=== PATIENT | female | born 1970 | race Caucasian/White ===

== ENCOUNTER 2018-12-14 12:22 | Emergency (ER) | payer MEDICAID ==
[2018-12-14 12:37] VITALS: BP 128/84
[2018-12-14] MEDS ORDERED: CHERRY SYRUP 10 ML UDC PO ONE (13:00)
[2018-12-14] MEDS ORDERED: ALBUTEROL NEB 2.5 MG/3 ML INH STA (13:00)
[2018-12-14] MEDS ORDERED: DEXAMETHASONE 10 MG/ML VIAL PO STA (13:00)
--- NOTE | 2018-12-14 13:13 | ED Physician Documentation ---
History of Present Illness - Stated complaint Stated Complaint: COUGH/SOA - Chief complaint Chief Complaint: General - History obtained from History obtained from: Patient - History of Present Illness Timing: Today Pain level max: 0 Pain level now: 0 - Additonal information Additional information: 48-year-old female presents to the emergency department stating that she has had difficulty breathing for the past few weeks. Feels like it is her allergies. No fevers. Clear sputum. Take Zyrtec and Flonase. Has never used inhalers before, but states it feels tight when she tries to breathe. Nothing makes it better or worse. Review of Systems Constitutional: denies: Fever, Chills GI: denies: Vomiting Skin: denies: Rash Musculoskeletal: denies: Neck pain, Back pain Neurologic: denies: Focal weakness, Numbness, Headache PD PAST MEDICAL HISTORY - Past Medical History Past Medical History: No - Present Medications Home Medications: Ambulatory Orders Medication Instructions Recorded Confirmed Albuterol Sulf [Ventolin Hfa 1 - 2 puffs INH Q4HR PRN #1 inhaler 12/14/18 Inhaler] predniSONE [Deltasone] 10 mg PO [id number] #42 tab 12/14/18 - Allergies Allergies/Adverse Reactions: Allergies Allergy/AdvReac Type Severity Reaction Status Date / Time No Known Drug Allergies Allergy Verified 12/14/18 12:37 - Social History Does the pt smoke?: No Smoking Status: Never smoker PD ED PE NORMAL - Vitals Vital signs reviewed: Yes - General General: Alert and oriented X 3, No acute distress - HEENT HEENT: Moist mucous membranes - Neck Neck: Supple, no meningeal sign - Cardiac Cardiac: RRR - Respiratory Respiratory: No respiratory distress, Clear bilaterally - Derm Derm: Warm and dry - Extremities Extremities: No edema - Neuro Neuro: Alert and oriented X 3 Results - Vitals Vitals: Vital Signs - 24 hr 12/14/18 12/14/18 12:33 13:15 Temperature 36.8 C Heart Rate 77 79 Respiratory 14 16 Rate Blood Pressure 128/84 H O2 Saturation 99 Oxygen O2 Source Room air PD MEDICAL DECISION MAKING - ED course Complexity details: reviewed results, re-evaluated patient, considered differential, d/w patient ED course: 48-year-old female presents to the emergency department with what appears to be seasonal allergies. Will place on steroids as well. We will continue support king care and follow-up with her doctor. Feels better after nebulizer treatment and will place on albuterol for home as well. No evidence of pneumonia. No fevers. No hypoxia. No respiratory distress. Patient counseled regarding signs and symptoms for which I believe and urgent re-evaluation would be necessary. Patient with good understanding of and agreement to plan and is comfortable going home at this time This document was made in part using voice recognition software. While efforts are made to proofread this document, sound alike and grammatical errors may occur. Departure - Departure Disposition: 01 Home, Self Care Clinical Impression: Seasonal allergies Condition: Good Instructions: ED Allergy Seasonal Follow-Up: your,doctor in 1 week [Other] Prescriptions: Albuterol Sulf [Ventolin Hfa Inhaler] 1 - 2 puffs INH Q4HR PRN #1 inhaler PRN Reason: Shortness Of Air/Wheezing predniSONE [Deltasone] 10 mg PO [id number] #42 tab Comments: return if you worsen. This should improve over the next few days. Return especially for worsening breathing or fevers. Discharge Date/Time: 12/14/18 13:52
== END 2018-12-14 13:52 | disposition home or self-care (01) ==
LOC: ED 12:22
DX: J30.2 Other seasonal allergic rhinitis (principal)
CPT/HCPCS: 94640; 99283; A9270

== ENCOUNTER → 2019-06-19 | Outpatient (CLI) | payer MEDICAID ==
[2019-06-19 11:45] LABS: BASOPHILS % (AUTO) 0.6 %; EOSINOPHILS # (AUTO) 0.1 10^3/uL (0.0-0.7); HGB - HEMOGLOBIN 12.5 g/dL (12.0-16.0); LYMPHOCYTES # (AUTO) 1.2 10^3/uL (1.5-3.5); LYMPHOCYTES % (AUTO) 34.5 %; MEAN CORPUSCULAR HEMOGLOBIN 28.3 pg (27.0-31.0); MEAN CORPUSCULAR HGB CONC 31.9 g/dL (32.0-36.0); MEAN CORPUSCULAR VOLUME 88.9 fL (81.0-99.0); MEAN PLATELET VOLUME 10.2 fL (7.9-10.8); MONOCYTES # (AUTO) 0.4 10^3/uL (0.0-1.0); MONOCYTES % (AUTO) 10.3 %; NEUTROPHILS # (AUTO) 1.8 10^3/uL (1.5-6.6); NEUTROPHILS % (AUTO) 50.3 %; PLT - PLATELET COUNT 215 10^3/uL (130-450); RED BLOOD COUNT 4.41 10^6/uL (4.20-5.40); RED CELL DISTRIBUTION WIDTH 12.6 % (12.0-15.0); WHITE BLOOD COUNT 3.5 x10^3/uL (4.8-10.8)
[2019-06-19 12:06] LABS: ALBUMIN 4.2 g/dL (3.2-5.5); ALBUMIN/GLOBULIN RATIO 1.6 (1.0-2.2); ALKALINE PHOSPHATASE 69 IU/L (42-121); ALT ALANINE AMINOTRANSFERASE 43 IU/L (10-60); AST ASPARTATE AMINOTRANSFERASE 29 IU/L (10-42); BILIRUBIN,TOTAL 0.6 mg/dL (0.2-1.0); BUN - BLOOD UREA NITROGEN 16 mg/dL (6-20); CALCIUM 9.2 mg/dL (8.5-10.3); CARBON DIOXIDE - CO2 26 mmol/L (21-32); CHLORIDE 107 mmol/L (101-111); CHOL/HDL RATIO 3.5 (<4.4); CHOLESTEROL 212 mg/dL; CREATININE 0.6 mg/dL (0.4-1.0); GFR - MDRD 105 (>89); GLUCOSE 91 mg/dL (70-100); HDL CHOLESTEROL 61 mg/dL; LDL CHOLESTEROL,CALCULATED 127 mg/dL; LDL/HDL RATIO 2.1 (<4.4); SODIUM 139 mmol/L (135-145); TOTAL PROTEIN 6.9 g/dL (6.7-8.2); VLDL CHOLESTEROL 24 mg/dL
[2019-06-19 12:10] LABS: HB2 TOTAL 12.7 g/dL; HEMOGLOBIN A1C 0.54 g/dL
== END ==
LOC: LAB.WCP 09:47
PROVIDERS: ATTEND Physician Assistant
DX: Z00.00 Encounter for general adult medical examination without abnormal findings (principal)
CPT/HCPCS: 36415; 80053; 80061; 83036; 83721; 84443; 85025

== ENCOUNTER 2019-07-27 15:26 | Emergency (ER) | payer MEDICAID ==
[2019-07-27] MEDS ORDERED: HYDROmorphone 1 MG/ML CARPUJECT IM STA (15:56)
[2019-07-27] MEDS ORDERED: ONDANSETRON ODT 4 MG TABLET TL STA (15:56)
--- NOTE | 2019-07-27 15:58 | ED Physician Documentation ---
PD HPI LOWER EXT INJURY - Stated complaint Stated Complaint: FALL RT KNEE PX - Chief complaint Chief Complaint: Trauma Ext - History obtained from History obtained from: Patient - History of Present Illness PD HPI LOW EXT INJURY LOCATION: Right, Knee Type of injury: Fall Where injury occurred: Home Timing - onset: Today Timing - duration: Minutes Timing - details: Abrupt onset, Still present Improved by: Rest, Ice, Immobilization Worsened by: Moving, Palpating Associated symptoms: Swelling, Discolored. No: Weakness, Numbness, Tingling Contributing factors: No: Anticoagulated Similar symptoms before: Has not had sx before Recently seen: Not recently seen - Additional information Additional information: Previously well 49-year-old female was walking in her driveway when she fell and fell directly onto the kneecap on her right side. She has a lot of swelling associated with this she was not able to get up and bear weight on the leg required the assistance of her and a neighbor to get her into the car to come to the emergency department. She has not injured this knee previously. She is not able to move it without severe pain. Review of Systems Constitutional: denies: Fever Eyes: denies: Decreased vision Ears: denies: Ear pain Nose: denies: Congestion Throat: denies: Sore throat Cardiac: denies: Chest pain / pressure Respiratory: denies: Dyspnea, Cough GI: denies: Abdominal Pain, Nausea, Vomiting : denies: Dysuria, Frequency PD PAST MEDICAL HISTORY - Past Medical History Past Medical History: No - Past Surgical History Past Surgical History: No - Present Medications Home Medications: Ambulatory Orders Medication Instructions Recorded Confirmed Albuterol Sulf [Ventolin Hfa 1 - 2 puffs INH Q4HR PRN #1 inhaler 12/14/18 Inhaler] predniSONE [Deltasone] 10 mg PO [id number] #42 tab 12/14/18 Hydrocodone/Acetaminophen 1 - 2 each PO Q6H PRN #14 tablet 07/27/19 [Hydrocodon-Acetaminophen 5-325] Ondansetron Odt [Zofran] 4 mg TL Q6H PRN #10 tablet 07/27/19 - Allergies Allergies/Adverse Reactions: Allergies Allergy/AdvReac Type Severity Reaction Status Date / Time No Known Drug Allergies Allergy Verified 07/27/19 15:34 - Social History Does the pt smoke?: No Smoking Status: Never smoker Does the pt drink ETOH?: No Does the pt have substance abuse?: No - Immunizations Immunizations are current?: Yes - POLST Patient has POLST: No PD ED PE NORMAL - Vitals Vital signs reviewed: Yes (hypertensive ) - General General: Alert and oriented X 3, No acute distress, Well developed/nourished - HEENT HEENT: Atraumatic, PERRL, EOMI - Respiratory Respiratory: No respiratory distress - Derm Derm: Normal color, Warm and dry, No rash - Extremities Extremities: Other (There is marked swelling and ecchymosis and abrasion over the right patella. There is a palpable joint effusion the knee is tender to touch anteriorly the lateral and medial joint line are nontender. The anterior drawer and medial lateral collateral ligaments appear stable. 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 Displaced comminuted mid right patella fracture.), EMP read indepedently, See rad report PD MEDICAL DECISION MAKING - ED course Complexity details: reviewed old records, reviewed results, re-evaluated patient, considered differential, d/w patient, d/w family ED course: 49-year-old female with a fall onto her right knee has extensive bruising to her kneecap and a widely distracted transverse patellar fracture. Dr. Dewey is consulted in the case and recommends placement into a long leg knee immobilizer and follow-up in the orthopedic office in 3 days time. Departure - Departure Disposition: 01 Home, Self Care Clinical Impression: Patellar fracture Qualifiers: Encounter type: initial encounter Fracture type: closed Fracture morphology: transverse Fracture alignment: displaced Laterality: right Qualified Code(s): S82.031A - Displaced transverse fracture of right patella, initial encounter for closed fracture Condition: Stable Instructions: ED Fx Patella Follow-Up: Michelle Cook PA [Primary Care Provider] - Jc Kowalski MD [Provider Admit Priv/Credential] - Prescriptions: Hydrocodone/Acetaminophen [Hydrocodon-Acetaminophen 5-325] 1 - 2 each PO Q6H PRN #14 tablet PRN Reason: pain Ondansetron Odt [Zofran] 4 mg TL Q6H PRN #10 tablet PRN Reason: Nausea / Vomiting
--- NOTE | 2019-07-27 16:54 | XRAY Report ---
Reason: TRAUMA Procedure Date: 07/27/2019 Accession Number: [id number] / [id number] Procedure: XR - Knee 3 View RT CPT Code: Final Report FULL RESULT: EXAM: RIGHT KNEE RADIOGRAPHY EXAM DATE: 07/27/2019 04:44 PM. CLINICAL HISTORY: Fall onto patella. Knee pain. COMPARISON: None. TECHNIQUE: 3 views. FINDINGS: Bones: Comminuted mid right patella fracture is seen with distraction of the largest fracture fragments 4.2 cm. Tiny fracture fragments are seen along the cephalad margin of the inferior largest fracture fragment. Joints: No dislocation. No significant joint space narrowing. Soft Tissues: Marked soft tissue swelling. IMPRESSION: 1. Displaced comminuted mid right patella fracture. RADIA
--- NOTE | 2019-07-27 17:33 | MISCELLANEOUS PROVIDER NOTE ---
Miscellaneous Provider Note - - Note: Called by John Marquez MD from emergency medicine dept. regarding patient's right knee injury. Patient reportedly has displaced transverse patella fracture which is a closed injury. We discussed injury and likely surgical repair in the future. Discussed placing bulky Mccarthy dressing Javi wrap and knee immobilizer or hinged knee brace locked in extension with crutches or other assistive device and assistance as necessary for safe ambulation. We talked about protected weightbearing. Dr. Marquez believes the patient would be capable of managing safely with the above plan. He will give the patient our office contact information and the office will reach out to her first thing on Tuesday morning with likely plan for timely evaulation and potential surgical repair if agreeable. Patient would be advised to call sooner if problems or questions should arise.
[2019-07-27 18:24] VITALS: BP 140/87
== END 2019-07-27 18:23 | disposition home or self-care (01) ==
LOC: ED 15:26
DX: S82.031A Displaced transverse fracture of right patella, initial encounter for closed fracture (principal); W18.39XA Other fall on same level, initial encounter; Y93.01 Activity, walking, marching and hiking; Y92.008 Other place in unspecified non-institutional (private) residence as the place of occurrence of the external cause
CPT/HCPCS: 73562; 96372; 99283; 99284; J1170; Q0162

== ENCOUNTER 2019-08-02 08:00 | Outpatient (CLI) | payer MEDICAID | END 2019-08-02 23:59 | disposition home or self-care (01) | LOC: LAB.R 08:00 | PROVIDERS: ATTEND Orthopaedic Surgery Sports Medicine | DX: Z01.812 Encounter for preprocedural laboratory examination (principal); S82.001D Unspecified fracture of right patella, subsequent encounter for closed fracture with routine healing; S82.031D Displaced transverse fracture of right patella, subsequent encounter for closed fracture with routine healing | CPT/HCPCS: 87640 ==

== ENCOUNTER 2019-08-08 07:31 | Day surgery (SDC) | payer MEDICAID ==
[~2019-08-08 07:31] MED LIST: BUPIVACAINE 0.25% PF 30 ML VIAL ONE; CEFAZOLIN SODIUM IN 0.9 % NACL 2 GM/100 ML BAG IV ONE; LIDOCAINE 1%-EPI 1:100000 20 ML MDV ONE
[2019-08-08] MEDS ORDERED: HYDROmorphone 1 MG/ML SYRINGE IVP ONE (07:32)
[2019-08-08] MEDS ORDERED: LIDOCAINE-MPF 2% 5 ML VIAL IM ONE (07:32)
[2019-08-08] MEDS ORDERED: MIDAZOLAM 2 MG/2 ML VIAL IVP ONE (07:32)
[2019-08-08] MEDS ORDERED: ACETAMINOPHEN 1,000 MG/100 ML 100 ML IV ONE (07:32)
[2019-08-08] MEDS ORDERED: PROPOFOL 200 MG/20 ML VIAL IVP ONE (07:32)
[2019-08-08] MEDS ORDERED: fentaNYL 100 MCG/2 ML VIAL IVP ONE (07:32)
[2019-08-08] MEDS ORDERED: SCOPOLAMINE PATCH TOP ONE (07:55)
[2019-08-08] MEDS ORDERED: LACTATED RINGERS 1,000 ML IV ONE ×3 (08:08→12:25)
[2019-08-08] MEDS ORDERED: IPRATROPIUM/ALBUTEROL 3 ML NEB INH ONE (08:21)
--- NOTE | 2019-08-08 08:22 | ANESTHESIA ---
Pre-Anesthesia VS, & Labs - Diagnosis right petalla fracture - Procedure right petalla ORIF Vital Signs: Temp Pulse Resp BP Pulse Ox 36.9 C 85 18 117/91 H 95 08/08/19 07:49 08/08/19 07:49 08/08/19 07:49 08/08/19 07:49 08/08/19 07:49 Height 5 ft 5 in Weight (kg) 81.8 kg Body Mass Index 29.9 - NPO >8 hours - Is Patient ?: No Home Medications and Allergies Home Medications: Ambulatory Orders Cetirizine HCl 10 mg PO DAILY 08/01/19 Ipratropium/Albuterol Sulfate [Iprat-Albut 0.5-3(2.5) mg/3 ml] 3 ml IH QID PRN 08/01/19 Mometasone Furoate [Asmanex Hfa] 2 puffs IH BID 08/01/19 oxyCODONE [Roxicodone] 5 mg PO Q4HR PRN 08/01/19 Fluticasone [Flonase] 1 DAILY 08/08/19 Cetirizine HCl 10 mg PO DAILY 08/01/19 Ipratropium/Albuterol Sulfate [Iprat-Albut 0.5-3(2.5) mg/3 ml] 3 ml IH QID PRN 08/01/19 Mometasone Furoate [Asmanex Hfa] 2 puffs IH BID 08/01/19 oxyCODONE [Roxicodone] 5 mg PO Q4HR PRN 08/01/19 Fluticasone [Flonase] 1 DAILY 08/08/19 Allergies/Adverse Reactions: Allergies Allergy/AdvReac Type Severity Reaction Status Date / Time beclomethasone [From Qvar] Allergy "felt like Verified 08/01/19 15:25 someone sitting on chest" Anes History & Medical History - Anesthetic History Anesthesia Complications: reports: Post-Operative Nausea/Vomiting - Medical History Cardiovascular: reports: None Pulmonary: reports: Asthma Gastrointestinal: reports: GERD Urinary: reports: None Musculoskeletal: reports: None Endocrine/Autoimmune: reports: None Skin: reports: None Smoking Status: Never smoker - Surgical History Gynecologic: section, Hysterectomy, Other Orthopedic: Other Exam General: Alert Dental: WNL Mouth Opening: Greater than 4 Fingerbreadths Neck Mobility: Normal Mallampati classification: II Respiratory: Lungs clear Cardiovascular: Regular rate, Normal S1, Normal S2 Plan Anesthesia Type: General, Femoral Block Consent for Procedure(s) Verified and Reviewed: Yes Code Status: Attempt Resuscitation ASA classification: 2-Mild systemic disease Is this case an emergency?: No
[2019-08-08] MEDS ORDERED: BUPIVACAINE 0.25% PF 30 ML VIAL SUBQ ONE (09:41)
[2019-08-08] MEDS ORDERED: ONDANSETRON 4 MG/2 ML VIAL IVP PRN (12:22)
[2019-08-08] MEDS ORDERED: oxyCODONE 5 MG TABLET PO PRN (12:22)
--- NOTE | 2019-08-08 12:22 | IMMEDIATE POSTOPERATIVE NOTE ---
Immediate Postoperative Note - Procedure Note Procedure Date: 08/08/19 Pre-Op Diagnosis: Right patella fracture Procedure: Right patella open reduction internal fixation Post-Op Diagnosis: Same Primary Surgeon: Tripp Kowalski Outbound Call Center Representative: None Anesthesia Type: General ET tube, Local, Regional block Findings: Comminuted intra-articular patella fracture Complications: No complications Estimated Blood Loss (in cc): 50 Drains, Catheters, Devices: 1.5 millimeter screw from modular handset, 18-gauge wire, 0.062 K wire x2 Specimens and Cultures: None Plan of Care: Patient tolerated procedure well instrument and sponge counts correct patient transferred recovery room in stable condition. Recommend nonweightbearing right lower extremity recommend keeping soft splint clean dry and intact with hinged knee brace locked in extension nonweightbearing crutches and assistance as necessary icing and elevation at rest Follow-up 10 to 14 days or sooner should problems questions or worsening of her condition arise. Postoperative instructions reviewed with patient preoperatively and with friends and boyfriend postoperatively.
[2019-08-08] MEDS: fentaNYL 100 MCG/2 ML VIAL ONE ×4 (12:47→13:10)
[2019-08-08] MEDS ORDERED: KETOROLAC 15 MG/ML VIAL ONE (12:49)
--- NOTE | 2019-08-08 13:08 | XRAY Report ---
Reason: ORIF RIGHT PATELLA Procedure Date: 08/08/2019 Accession Number: [id number] / [id number] Procedure: FL - OR C-Arm Procedure CPT Code: Final Report FULL RESULT: EXAM: FLUOROSCOPIC GUIDANCE EXAM DATE: 08/08/2019 12:58 PM. CLINICAL HISTORY: ORIF RIGHT PATELLA. COMPARISON: None. FINDINGS: Lateral and AP projection fluoroscopic capture images demonstrate construction of a tension band construct, expected configuration. IMPRESSION: Fluoroscopic guidance provided for right patella ORIF. Total fluoroscopy time: 44 seconds. Number of images: 3. RADIA
[2019-08-08] MEDS ORDERED: oxyCODONE 5 MG TABLET ONE ×2 (13:48→14:46)
[2019-08-08] MEDS ORDERED: ONDANSETRON 4 MG/2 ML VIAL ONE (13:48)
[2019-08-08 15:01] VITALS: BP 138/82
--- NOTE | 2019-08-08 18:36 | OPERATIVE REPORT ---
DATE OF SERVICE: 08/08/2019 Physician: Jc Kowalski MD PREOPERATIVE DIAGNOSIS: Right patella fracture. POSTOPERATIVE DIAGNOSIS: Right patella fracture. PROCEDURE: Right patella open reduction and internal fixation. IMPLANTS: 1. Two times 0.062 K-wire. 2. One times 18-gauge wire. 3. One times x 1.5 mm modular hand screw, 16 mm. 4. FiberWire x1. INTRAOPERATIVE COMPLICATIONS: None noted. PREOPERATIVE ANTIBIOTICS: Weight-based IV Ancef. ESTIMATED BLOOD LOSS: Less than 50 mL FLUIDS: 900 mL lactated Ringer's. TOURNIQUET TIME: 120 minutes at 275 mmHg. COMPRESSION DEVICE: Contralateral left calf SCD boot. INTRAOPERATIVE COMPLICATIONS: None noted. HISTORY OF PRESENT ILLNESS: Patient is a 49-year-old female who sustained a right knee patellar frac ture after a fall. She had an abrasion and as such, her surgery was held until soft tissue envelope improved. She had appropriate preanesthesia evaluation and medical input. We previously discussed risks, benefits, and alternatives of operative and nonoperative treatment at length. These again highlighted and the patient had an opportunity to ask questions the preoperative care unit. Her questions were answered. She verbalized her wish to proceed with operative treatmen t. Informed consent was previously given. DESCRIPTION OF PROCEDURE: On 08/08/2019, patient is identified in the preoperative care unit. She i dentifies the right knee as the operative site. This was signed. The patient received preoperative weight-based IV antibiotics, brought to the operating room, placed supine on the operating table. He ad, neck and extremities placed in anatomically comfortable and safe positions to avoid peripheral ne rve stretch compression. Patient's right lower extremity is well-padded, tourniquet placed high on h er right thigh, taking care to avoid encumbrance of the genitalia. Contralateral left leg has SCD dilan ots in place. Patient's right knee has minimal eschar gently removed, and then the right knee is pre -washed with Hibiclens solution, followed by alcohol, followed by prepping and draping with ChloraPre p solution under sterile conditions. At this time, surgical pause identifies right knee as the operative site. At this point, incision is made just lateral to the previously noted eschar, even though there is nicely de-epithelialized tiss ue. Incision is made through skin and then spreading dissection carried out to the extensor mechanis m, which is found to be split with the retinaculum being split just medial and lateral to the patella and a transverse patella fracture. There is noted to be significant comminution, particularly of th e distal fragment with smaller medial and lateral fragments with intra-articular involvement. There is a sagittal split in the most lateral comminuted piece as well. At this time, the joint is copiously irrigated. Hematoma is removed from the fracture site. Periost eum is elevated at the edge of the fracture site. At this point, a hwyyr-[id number] reduction clamp re duces the medial comminuted fragment and a 1.5 mm screw is placed to hold the small fragment. The la teral fracture, comminuted piece is noted to be not amenable to screw fixation, given the small size of it in the sagittal split, and as such, this is held for later soft tissue repair. At this point, after copious irrigation, examination of the joint is noted to be free of significant loose debris. It is noted that the edges of the fracture shows some comminution, and requiring minimal debridement of chondral surface and removal of small cartilage pieces. At this point, the major fracture fragmen ts are reduced and held with [id number] reduction clamp. Multiple iterations of this are done, s uch that under direct visualization and under fluoroscopic image the reduction is maximized. While i t is significantly improved and step-offs less than 2 mm with no significant gap, it is noted to be s lightly irregular, not only under direct visualization, but on x-ray secondary to some bone and carti jurgen loss. This is maximally reduced and held, and then K-wires are placed. This is followed by michi cement of 18-gauge wire as close to the distal and proximal aspects of the bone as possible in a figu re-of-eight tension band construct. Care is taken to limit any significant force or pressure on the fibers of the patellar and quad tendons, and the wire is brought as close to bone as possible. At th is point, the medial and lateral aspects of the wire are twisted appropriately, and then ultimately, once appropriate tension and compression is noted, then the wires are ultimately cut and bent away fr om the prepatellar region. At this point, fluoroscopic image confirms maximal reduction of the fract ure, as well as appropriate hardware position. At this point, the K-wires are then bent initially an teriorly. Small lengthwise splits were made in the quad or patellar tendon such that the wire could be twisted posteriorly to decrease the risk of soft tissue impingement, and then this is pushed proxi mahsa as a final step, such that the distal aspect near the patellar tendon is the least prominent. At this time, the small split in the tendons are oversewn to repair of the rkor-le-flwv quad or feilz lar tendon split, but also to decrease the risk of the wire rotating anteriorly. At this point, the most comminuted lateral fracture fragment is reduced and then held with 0 Vicryl suture in the soft t issue attachments, and this is followed by placement of a #5 FiberWire cerclage around the entire cir cumference of the patella to fixate the smaller fracture fragments. This is then tied and then overs ewn to decrease the risk of impingement. Copious irrigation is performed prior to this step as well. At this point, there is repeat copious irrigation. Retinaculum is repaired using 0 Vicryl medially a nd laterally, and then the prepatellar soft tissues are closed over the hardware, such that there is no visible hardware, and then the wound is copiously irrigated again. Tourniquet is deflated. Hemostasis achieved. The skin is closed in layered fashion using 0 Vicryl, 2-0 Vicryl interrupted nylon suture. Skin is washed and dried. Xeroform dressing is applied. Dry s terile dressing, soft roll is applied from the foot to the thigh, and then Javi wrap applied and the p atient is placed in a hinged knee brace locked in extension. The patient tolerated the procedure well. Instrument and sponge counts were correct. The patient wa s transferred to recovery room in stable condition. The patient will be nonweightbearing, right lower extremity. She should avoid bending the knee. She will keep the knee immobilizer, though adjusted as necessary. She would ice and elevate as directed . She would be encouraged to move her foot and ankle as tolerated. She would use assistance and ass istive device for ambulation. We would see her in 10-14 days or sooner should problems, questions or worsening condition arise. The patient's significant other, Martinez, as well as 2 girlfriends are contacted in the waiting room an d case discussed. Questions were answered. Postoperative instructions reviewed, perioperative medic ation plan previously reviewed. The patient previously denied any contraindication medications and w ill use them as directed. She will be on perioperative antibiotics, perioperative DVT prophylaxis wi th aspirin full size daily for 1 month, and to use narcotic analgesics and appropriate antinausea med ications, as well as [id number]-[id number] bowel regimen as necessary. Their questions are answered. They verbalized understanding and satisfaction with plan as discussed. TD: 08/08/2019 14:45
== END 2019-08-08 07:32 | disposition home or self-care (01) ==
LOC: SDS 07:31
PROVIDERS: ATTEND Orthopaedic Surgery Sports Medicine
DX: S82.031A Displaced transverse fracture of right patella, initial encounter for closed fracture (principal); J45.909 Unspecified asthma, uncomplicated
CPT/HCPCS: 27524; A9270; C1713; J0131; J0690; J1170; J3490; J7120

== ENCOUNTER 2019-11-26 08:00 | Outpatient (CLI) | payer MEDICAID ==
--- NOTE | 2019-11-26 12:16 | XRAY Report ---
Reason: ARTHROFIBROSIS RIGHT KNEE Procedure Date: 11/26/2019 Accession Number: [id number] / [id number] Procedure: [facility] - Knee 3 View RT CPT Code: Final Report FULL RESULT: PROCEDURE: Knee 3 View RT INDICATIONS: ARTHROFIBROSIS RIGHT KNEE TECHNIQUE: 3 views of the right knee(s) were acquired. COMPARISON: 07/27/2019. FINDINGS: Bones: Patient is status post prior internal fixation of patella with healing mid patellar fracture. No gross hardware loosening or failure is seen. Alignment of right knee and right patella is anatomic. No new fracture or dislocation. Medial femoral tibial compartment osteoarthritic changes are seen. No suspicious bony lesions. Soft tissues: No joint effusion. No suspicious soft tissue calcifications. IMPRESSION: Post ORIF changes in patella with healing mid patellar body fracture. No new fracture or dislocation. Medial femoral tibial compartment osteoarthritis. Reviewed by: Chapo Harrington MD on 11/26/2019 12:15 PM PDT Approved by: Chapo Harrington MD on 11/26/2019 12:15 PM PDT Station ID: [id number]
== END 2019-11-26 23:59 | disposition home or self-care (01) ==
LOC: DI.WCP 08:00
PROVIDERS: ATTEND Orthopaedic Surgery
DX: S82.001D Unspecified fracture of right patella, subsequent encounter for closed fracture with routine healing (principal); M17.11 Unilateral primary osteoarthritis, right knee

== ENCOUNTER 2019-11-30 10:05 | Outpatient (CLI) | payer MEDICAID | END 2019-11-30 10:06 | disposition home or self-care (01) | LOC: LAB 10:05 | PROVIDERS: ATTEND Orthopaedic Surgery | DX: M24.612 Ankylosis, left shoulder (principal); Z11.59 Encounter for screening for other viral diseases | CPT/HCPCS: 81599 ==

== ENCOUNTER 2019-12-05 06:26 | Day surgery (SDC) | payer MEDICAID ==
[2019-12-05] MEDS ORDERED: CELECOXIB 100 MG CAPSULE PO ONE (06:27)
[2019-12-05] MEDS ORDERED: KETOROLAC 30 MG/ML VIAL IVP ONE (06:27)
[2019-12-05] MEDS ORDERED: MIDAZOLAM 2 MG/2 ML VIAL IVP ONE (06:27)
[2019-12-05] MEDS ORDERED: GABAPENTIN 400 MG CAPSULE ONE (06:27)
[2019-12-05] MEDS ORDERED: ACETAMINOPHEN 1,000 MG/100 ML 100 ML IV ONE ×2 (06:27→06:28)
[2019-12-05] MEDS ORDERED: ROCURONIUM 50 MG/5 ML VIAL IVP ONE (06:27)
[2019-12-05] MEDS ORDERED: ONDANSETRON 4 MG/2 ML VIAL IVP ONE (06:27)
[2019-12-05] MEDS ORDERED: PROPOFOL 200 MG/20 ML VIAL IVP ONE (06:27)
[2019-12-05] MEDS ORDERED: LIDOCAINE-MPF 2% 5 ML VIAL IM ONE (06:27)
[2019-12-05] MEDS ORDERED: LACTATED RINGERS 1,000 ML IV ONE (07:00)
[2019-12-05] MEDS ORDERED: SCOPOLAMINE PATCH TOP ONE (07:13)
--- NOTE | 2019-12-05 07:13 | ANESTHESIA ---
Pre-Anesthesia VS, & Labs - Diagnosis arthrofibrosis of right knee post-op - Procedure arthroscopy, lysis of adhesions and manipulation of right knee Vital Signs: Temp Pulse Resp BP Pulse Ox 36.4 C L 80 17 142/86 H 97 12/05/19 06:46 12/05/19 06:46 12/05/19 06:46 12/05/19 06:46 12/05/19 06:46 Height 5 ft 5 in Weight (kg) 84 kg Body Mass Index 29.9 - NPO >8 hours - Is Patient ?: No Home Medications and Allergies Home Medications: Ambulatory Orders Fluticasone [Flonase] 1 spray INH DAILY 12/05/19 Cetirizine HCl 10 mg PO DAILY 08/01/19 oxyCODONE [Roxicodone] 5 mg PO Q4HR PRN 08/01/19 Fluticasone [Flonase] 1 spray ELÍAS DAILY 08/08/19 Fluticasone [Flonase] 1 spray INH DAILY 12/05/19 prilosec Allergies/Adverse Reactions: Allergies Allergy/AdvReac Type Severity Reaction Status Date / Time beclomethasone [From Qvar] Allergy "felt like Verified 08/01/19 15:25 someone sitting on chest" Anes History & Medical History - Anesthetic History Anesthesia Complications: reports: Post-Operative Nausea/Vomiting - Medical History Cardiovascular: reports: None Pulmonary: reports: Asthma (well controlled on inhalors) Gastrointestinal: reports: GERD (well controlled on meds) Urinary: reports: None Neuro: reports: None Musculoskeletal: reports: None Endocrine/Autoimmune: reports: None Blood Disorders: reports: None Skin: reports: None Smoking Status: Never smoker - Surgical History Gynecologic: section, Hysterectomy, Other Neurologic:  Orthopedic: Other (ORIF right patella fracture) Exam General: Alert, Oriented x3, Cooperative, No acute distress Dental: WNL Mouth Openin Fingerbreadth Neck Mobility: Normal Mallampati classification: II Thyromental Distance: 4-6 cm Respiratory: Lungs clear, Normal breath sounds, No respiratory distress, No accessory muscle use Cardiovascular: Regular rate, Normal S1, Normal S2, No murmurs Mental/Cognitive Status: Alert/Oriented X3, Normal for patient Plan Anesthesia Type: General Consent for Procedure(s) Verified and Reviewed: Yes Code Status: Attempt Resuscitation ASA classification: 2-Mild systemic disease Is this case an emergency?: No
[2019-12-05] MEDS ORDERED: LIDOCAINE 1%-EPI 1:100000 20 ML MDV ONE (07:31)
[2019-12-05] MEDS ORDERED: BUPIVACAINE 0.5% PF 30 ML VIAL ONE (07:31)
[2019-12-05] MEDS ORDERED: BUPIVACAINE 0.5% PF 30 ML VIAL INFIL ONE (08:08)
[2019-12-05] MEDS ORDERED: LIDOCAINE 1%-EPI 1:100000 20 ML MDV SUBQ ONE (08:08)
--- NOTE | 2019-12-05 09:04 | OPERATIVE REPORT ---
Operative Report - General Procedure Date: 12/05/19 Planned Procedure: Arthroscopy right knee with lysis of adhesions and manipulation of right knee under anesthesia Pre-Op Diagnosis: Arthrofibrosis right knee following open reduction internal fixation right Procedure Performed: Arthroscopy right knee, lysis of adhesions and manipulation of right knee under general anesthesia Post Op Diagnosis: Arthrofibrosis right knee following open reduction internal fixation right - Procedure Note Primary Surgeon: Deisy Anesthesia Provider: heike luna Anesthesia Technique: General mask Estimated Blood Loss (mL): 10 Indications: This is a 49-year-old woman who sustained a displaced fracture of her right patella approximately 4 months ago. She has been going to physical therapy but has not been making progress with her flexion. She has full extension but poor active flexion, somewhere between 45 to 60 degrees. Her patellar fracture seem to be healing satisfactorily and the internal fixation is intact prior to surgery. Findings: The patient had a flexion of about 45 degrees under anesthesia. There are peripatellar adhesions and decreased patellar mobility prior to the manipulation. Full flexion so that the calf to touch the back of her right thigh was achieved. There were adhesions noted mostly extra-articular but a few intra-articular as well during arthroscopic examination. The patellar fracture appeared healed. 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 No complications noted. The patient - Other Other Information/Narrative: The patient was brought to the operating room table, given general anesthetic. A timeout procedure was performed by the entire operating room team and all were in agreement. Manipulation of the knee was performed with the right hip flexed at 90 degrees and then gentle steady pressure on the dorsum of the tibia was performed. There is audible lysis of adhesions and improvement of motion so that her flexion was full with the back of her calf touching the back of her right thigh. The right lower extremity was prepped and draped in a sterile manner in the usual fashion. A 3 portal arthroscopic technique was utilized for the right knee. The [employer] 4 mm 30 degree diagnostic arthroscope was used in conjunction with [employer] video camera. Inflow was brought through the [employer] pe using the [employer] arthroscopic pump. The anteromedial portal was used for an instrument portal. Complete diagnostic arthroscopy was performed with normal intra-articular structures except for mild chondromalacia to the medial facet of the patella, grade 2. The patellar fracture appeared to be healed intra- articularly. The medial meniscus, lateral meniscus, anterior and posterior cruciate ligaments were intact. The medial lateral gutter showed some adhesions which had been released utilizing the radiofrequency probe and the Omid full- radius shaver. The patellar mobility was markedly improved following the procedure. The arthroscopic incision sites were closed with 4-0 nylon. Approximately 20 cc of local anesthetic was utilized using half percent Marcaine, 1% Xylocaine with epinephrine. A dry sterile dressing with Javi wrap was applied to the right knee. She tolerated the procedure well. Intraoperative C-arm x-rays were obtained and there was no sign of disruption of the patellar fracture right knee.
[2019-12-05] MEDS: fentaNYL 100 MCG/2 ML VIAL ONE ×2 (09:13→09:20)
--- NOTE | 2019-12-05 09:13 | XRAY Report ---
Reason: KNEE ARTHROSCOPY RIGHT Procedure Date: 12/05/2019 Accession Number: [id number] / [id number] Procedure: FL - OR C-Arm Procedure CPT Code: Final Report FULL RESULT: PROCEDURE: OR C-Arm Procedure INDICATIONS: KNEE ARTHROSCOPY RIGHT TECHNIQUE: Single image of the knee. COMPARISON: None. FINDINGS: Single spot fluoroscopic intraoperative image demonstrating patellar fixation hardware. Hardware appears intact. Reviewed by: Leonardo Kline MD on 12/05/2019 9:12 AM PDT Approved by: Leonardo Kline MD on 12/05/2019 9:12 AM PDT Station ID: [id number]
[2019-12-05] MEDS ORDERED: oxyCODONE 5 MG TABLET ONE ×2 (10:20→10:24)
--- NOTE | 2019-12-05 10:20 | Discharge Plan ---
Discharge Plan Problem Reviewed?: Yes Disposition: Home, Self Care Condition: Good Diet: Regular Activity Restrictions: Wt Bearing as Tolerated Shower Restrictions: No Driving Restrictions: Yes Assistance Devices: Cane Weight Bearing: Full Weight Plan of Treatment: start physical therapyTomorrow. Keep right knee elevated and can use ice to right knee. Work on bending the knee to improve motion. Assessment: Arthrofibrosis right knee Additional Instructions or Follow Up instructions: Work on bending your right knee. Can bear weight as tolerated on your right leg. May loosen the dressing if it feels too tight. Regular diet. Use Tylenol and ibuprofen for pain and oxycodone only for breakthrough pain. Follow-Up Care: Outpatient Rehab - PT No Smoking: If you smoke, Please STOP! Call for help. Follow-up with: Noe Olivas MD [Provider Admit Priv/Credential] -
[2019-12-05 10:48] VITALS: BP 117/86
== END 2019-12-05 06:27 | disposition home or self-care (01) ==
LOC: SDS 06:26
PROVIDERS: ATTEND Orthopaedic Surgery
DX: M24.661 Ankylosis, right knee (principal); S82.031 Displaced transverse fracture of right patella; M22.41 Chondromalacia patellae, right knee; J45.909 Unspecified asthma, uncomplicated
CPT/HCPCS: 29884; A9270; J0131; J3490; J7120

== ENCOUNTER 2020-01-25 09:37 | Outpatient (CLI) | payer MEDICAID ==
--- NOTE | 2020-02-05 08:31 | Mammography Report ---
BILATERAL DIGITAL SCREENING MAMMOGRAM 3D/2D: 01/25/2020 CLINICAL: Routine screening. Family history of breast cancer. No prior exams were available for comparison. The tissue of both breasts is heterogeneously dense. T his may lower the sensitivity of mammography. No significant masses, calcifications, or other findings are seen in either breast. IMPRESSION: NEGATIVE There is no mammographic evidence of malignancy. A 1 year screening mammogram is recommended. This exam was interpreted at Station ID: [id number]. NOTE: For mammograms, a report in lay terms will be sent to the patient. Approximately 15% of breast malignancies will not be visualized mammographically. In the management of a palpable breast mass, a negative mammogram must not discourage biopsy of a clinically suspicious lesion. Electronically Signed By: Loco [email or web address]/[email or web address]:02/04/2020 09:10:23 ACR BI-RADS Category 1: Negative 3341F PARENCHYMAL PATTERN: (D) - The breast(s) demonstrate(s) heterogeneously dense fibroglandular edison mckenzie. BI-RADS CATEGORY: (1) - 1 RECOMMENDATION: (ANNUAL) - Recommend routine annual screening mammography. [id number] 1 year screening LATERALITY: (B)
== END 2020-01-25 09:38 | disposition home or self-care (01) ==
LOC: DI 09:37
DX: Z12.31 Encounter for screening mammogram for malignant neoplasm of breast (principal); Z80.3 Family history of malignant neoplasm of breast
CPT/HCPCS: 77063; 77067

== ENCOUNTER → 2021-01-15 | Outpatient (CLI) | payer MEDICAID ==
--- NOTE | 2021-01-15 13:35 | XRAY Report ---
PROCEDURE: Knee 4 View RT INDICATIONS: R KNEE PX TECHNIQUE: 4 views of the right knee and one view of the left knee acquired. COMPARISON: Knee radiographs 11/26/2019 FINDINGS: Bones: Postsurgical changes are seen from patellar fracture fixation. The surgical hardware is intact . No acute fracture or dislocation is seen. No suspicious bony lesions. Mild joint space narrowing i s seen in the medial femorotibial compartments bilaterally. Soft tissues: No joint effusion. No suspicious soft tissue calcifications. IMPRESSION: Stable postsurgical changes involving the patella. No acute osseous abnormality. Reviewed by: Good Swan MD on 01/15/2021 1:34 PM PDT Approved by: Good Swan MD on 01/15/2021 1:34 PM PDT Station ID: [id number]
== END ==
LOC: DI.N 18:25
PROVIDERS: ATTEND Physician Assistant
DX: M25.561 Pain in right knee (principal); Z96.698 Presence of other orthopedic joint implants

== ENCOUNTER 2021-03-05 08:16 | Outpatient (CLI) | payer MEDICAID ==
--- NOTE | 2021-03-09 09:37 | Mammography Report ---
BILATERAL DIGITAL SCREENING MAMMOGRAM 3D/2D: 03/05/2021 CLINICAL: Family history of breast cancer. Routine screening. Comparison is made to exam dated: 01/25/2020 mammogram - [facility]. The tissue of both breasts is heterogeneously dense. This may lower the sensitivity of mammography. No significant masses, calcifications, or other findings are seen in either breast. There has been no significant interval change. IMPRESSION: NEGATIVE There is no mammographic evidence of malignancy. A 1 year screening mammogram is recommended. This exam was interpreted at Station ID: [id number]. NOTE: For mammograms, a report in lay terms will be sent to the patient. Approximately 15% of breast malignancies will not be visualized mammographically. In the management of a palpable breast mass, a negative mammogram must not discourage biopsy of a clinically suspicious lesion. Electronically Signed By: Gerson Ortiz M.D. ddp/penrad:03/05/2021 09:55:55 ACR BI-RADS Category 1: Negative 3341F PARENCHYMAL PATTERN: (D) - The breast(s) demonstrate(s) heterogeneously dense fibroglandular edison mckenzie. BI-RADS CATEGORY: (1) - 1 RECOMMENDATION: (ANNUAL) - Recommend routine annual screening mammography. [id number] 1 year screening LATERALITY: (B)
== END 2021-03-05 08:17 | disposition home or self-care (01) ==
LOC: DI.N 08:16
DX: Z12.31 Encounter for screening mammogram for malignant neoplasm of breast (principal); Z80.3 Family history of malignant neoplasm of breast